=== PATIENT | female | born 1995 | race Caucasian/White ===

== ENCOUNTER 2024-04-11 10:38 | Outpatient (CLI) | payer OTHER ==
[2024-04-11 11:28] VITALS: BP 130/82; PULSE 97; RESP 16; TEMP 97.9
--- NOTE | 2024-04-11 12:06 | P.MSEPDOC ---
Presenting Problems - Arrival Data Date of Arrival on Unit: 04/11/24 Time of Arrival on Unit: 10:38 Mode of Transport: Ambulatory - Complaint OB-Reason for Admission/Chief Complaint: Decreased Movement Comment: Pt presents to triage with c/o DFM. Pt states last felt movement was last night at 1999. Medical History - Information : 1 Para: 0 Term: 0 : 0 Abortions: Spontaneous or Elective: 0 Number of Living Children: 0 - Gestational Age Gestational Age by ANGEL (wks/days): 37 Weeks and 3 Days Review of Systems - Review of Systems Constitutional: No problems Breast: No problems ENT: No problems Cardiovascular: No problems Respiratory: No problems Gastrointestinal: No problems Genitourinary: No problems Musculoskeletal: No problems Neurological: No problems Skin: No problems Vital Signs - Temperature Temperature: 97.9 F Temperature Source: Temporal Artery Scan - Pulse Pulse Oximetery Pulse Rate: 97 Pulse Assessment Method: Pulse Oximetry - Respirations Respiratory Rate: 16 Oxygen Delivery Method: Room Air O2 Sat by Pulse Oximetry: 98 - Blood Pressure Right Arm Blood Pressure: 130/82 Blood Pressure Mean: 98 Blood Pressure Source: Automatic Cuff Medical Screen Scoring - Uterine Contractions Resting: Soft to palpation - Assessment - Baby A Baseline FHR: 135 Heart Rate - NICHD Category: Category I (Normal) NST: Reactive Physician Notification - Physician Notified Physician Notified Date: 04/11/24 Physician Notified Time: 11:11 Physician: Juan Carpio New Order Received: Yes - Notification Comment Comment: Dr. Carpio on unit, reported pt in triage with c/o DFM since last night at 1999. Dr. Carpio reviewed tracing and vitals signs, reported pt is feeling movement at this time and pt has an appointment with Dr. Plata tomorrow. Order received to discharge pt home. Maternal Triage Index - Maternal Triage Index Presenting for scheduled procedure w/no complaint: No - Stat/Priority 1 Stat Priority 1: No - Urgent/Priority 2 Urgent Priority 2: Yes Provider Notified: Juan Carpio Provider Notified Time: 11:11 Criteria Met for Priority 2: c/o decreased movement Disposition - Disposition OB Disposition: Discharge to home, Written follow up instructions reviewed Discharge Date: 04/11/24 Discharge Time: 11:18 I agree with the RN Medical Screening Exam: Yes Physician's MSE Comment: I have neither seen nor examined the patient. Case reviewed; plan agreed upon as documented in EMR&OBIX.: Yes Diagnosis: RELATED CONDITIONS, UNSPECIFIED, THIRD TRIMESTER
== END 2024-04-11 11:18 | disposition home or self-care (01) ==
LOC: FBPOP 10:38
PROVIDERS: ATTEND Obstetrics & Gynecology
DX: O36.8131 Decreased fetal movements, third trimester, fetus 1 (principal); Z3A.37 37 weeks gestation of pregnancy
CPT/HCPCS: 59025; 99213

== ENCOUNTER 2024-04-17 04:23 | Inpatient (IN) | payer OTHER ==
[2024-04-17] MEDS ORDERED: miSOPROStoL 200 MCG TAB PO PRN (05:34)
[2024-04-17] MEDS ORDERED: TERBUTALINE 1 MG/ML VIAL SQ PRN (05:34)
[2024-04-17] MEDS ORDERED: miSOPROStoL 200 MCG TAB RECTAL PRN (05:34)
[2024-04-17] MEDS ORDERED: OXYTOCIN 10 UNIT/ML 1 ML VIAL IM PRN (05:34)
[2024-04-17] MEDS ORDERED: LIDOCAINE 0.5% (PF) 5 MG/ML (50 ML SDV) SQ PRN (05:34)
[2024-04-17] MEDS ORDERED: CARBOPROST TROMETHAMINE 250 MCG/ML 1 ML AMP IM PRN (05:34)
[2024-04-17] MEDS ORDERED: METHYLERGONOVINE 0.2 MG/ML 1 ML AMP IM PRN (05:34)
[2024-04-17] MEDS ORDERED: TRANEXAMIC 1,000 MG/100ML-NACL 1,000 MG in EMPTY BAG 1 BAG IV PRN (05:34)
[2024-04-17] MEDS: LACTATED RINGERS 1,000 ML IV SCH (06:11)
[2024-04-17 06:19] LABS: Basophils % (A) 0 %; Eosinophils # (A) 0.1 k/uL (0-0.7); Eosinophils % (A) 1 %; HCT 38.5 % (34.0-46.0); HGB 12.8 gm/dL (11.4-16.0); Lymphocytes # (A) 1.6 k/uL (1.0-4.8); Lymphocytes % (A) 16 %; MCH 29.5 pg (25.0-35.0); MCHC 33.3 g/dL (31.0-37.0); MCV 88.6 fL (80.0-100.0); Mean Platelet Volume 8.6; Monocytes # (A) 0.7 k/uL (0-1.0); Monocytes % (A) 7 %; Neutrophils # (A) 7.6 k/uL (1.3-7.7); Neutrophils % (A) 75 %; Platelet Count 282 k/uL (150-450); RBC 4.35 m/uL (3.80-5.40); RDW 13.8 % (11.5-15.5); WBC 10.1 k/uL (3.8-10.6)
[2024-04-17 06:23] LABS: Glucose,Whole Blood 110 mg/dL (70-110)
[2024-04-17] MEDS: NALBUPHINE 10 MG/ML (10 ML MDV) IV PRN (07:32)
--- NOTE | 2024-04-17 08:34 | P.HPOB ---
History of Present Illness H&P Date: 04/17/24 Chief Complaint: Contractions Ms. Alexander is a 28 year old at 38 weeks and 2 days with EDC of 04/29/2024 by LMP consistent with 9 week US presenting with spontaneous rupture of membranes around 400 revealing clear amniotic fluid and bennie regularly. Her has been complicated by GDMA2 on Metformin. The fetus is estimated in the 88%ile (7 pounds and 2 ounces) for weight based on a 34 week 5 day growth US. work-up: blood type O positive, antibody screen negative, rubella immune, VDRL non-reactive, HBsAg negative, HIV negative, HCV non-reactive, gonorrhea negative, chlamydia negative, GBS negative. Past Medical History Past Medical History: No Reported History History of Any Multi-Drug Resistant Organisms: None Reported Past Surgical History: Adenoidectomy, Tonsillectomy Additional Past Surgical History / Comment(s): wisdom teeth out Past Anesthesia/Blood Transfusion Reactions: No Reported Reaction Past Psychological History: No Psychological Hx Reported Smoking Status: Never smoker Past Alcohol Use History: None Reported Past Drug Use History: None Reported - Past Family History Mother Additional Family Medical History / Comment(s): from pancreatic cancer Medications and Allergies Home Medications Medication Instructions Recorded Confirmed Type Vit No.179/Iron/Folic 1 each PO DAILY 04/01/24 04/11/24 History [ Tablet] metFORMIN HCL 500 mg PO DAILY 04/01/24 04/11/24 History Aspirin [Adult Low Dose Aspirin EC] 81 mg PO 04/17/24 History Allergies Allergy/AdvReac Type Severity Reaction Status Date / Time No Known Allergies Allergy Verified 04/17/24 04:34 Exam Intake and Output 04/16/24 04/17/24 04/17/24 22:59 06:59 14:59 Other: # Voids 1 Weight 96.615 kg Focused physical exam is performed. This is a healthy-appearing in no a pparent distress. Breathing is non-labored. Abdomen is gravid and non-tender. Cervical exam is 3-4/80/-2. Clear fluid noted. Extremities non-tender and non- edematous. heart tones are Category I and tocometer is graphing contractions every 2-4 minutes. Results Result Diagrams: 04/17/24 05:30 Assessment and Plan Assessment: 28 year old at 38 weeks and 2 days with SROM and in labor Plan: Admit, clear liquid diet, expectant management per patient request, continuous EFM and tocometer, IV nubain prn.
[2024-04-17] MEDS ORDERED: ROPIVACAINE 5 MG/ML 30 ML VIAL ONE (10:10)
[2024-04-17] MEDS ORDERED: SODIUM CHLORIDE 0.9% 250 ML BAG ONE (10:10)
[2024-04-17] MEDS ORDERED: fentaNYL (PF) 50 MCG/ML 5 ML AMP ONE (10:10)
[2024-04-17] MEDS ORDERED: GENTAMICIN PER PHARMACY MISCELLANE PRN (21:13)
[2024-04-17] MEDS: GENTAMICIN 120 MG in SODIUM CHLORIDE 0.9% 100 ML IVPB ONE (21:48)
[2024-04-17] MEDS: OXYTOCIN 30 UNITS/500 ML NS 30 UNIT in SALINE 1 500ML.BAG IV SCH (21:58)
[2024-04-17 22:03] LABS: African American GFR (CKD) >90 (>60 ml/min/1.73 sqM); Anion Gap 10 mmol/L; Blood Urea Nitrogen 12 mg/dL (7-17); Calcium 9.2 mg/dL (8.4-10.2); Carbon Dioxide 17 mmol/L (22-30); Chloride 104 mmol/L (98-107); Glucose 76 mg/dL (74-99); Non-African American GFR(CKD) >90 (>60 ml/min/1.73 sqM); Potassium 4.3 mmol/L (3.5-5.1); Sodium 131 mmol/L (137-145)
[2024-04-17] MEDS: AMPICILLIN 2,000 MG in SODIUM CHLORIDE 0.9% 100 ML IVPB SCH (23:39)
[2024-04-18] MEDS ORDERED: AMPICILLIN 2,000 MG in SODIUM CHLORIDE 0.9% 100 ML IVPB SCH
[2024-04-18] MEDS ORDERED: HYDROCORTISONE 2.5% RECTAL CREAM 30 GM TUBE RECTAL PRN (01:56)
[2024-04-18] MEDS ORDERED: ZOLPIDEM 5 MG TAB PO PRN (01:56)
[2024-04-18] MEDS ORDERED: SIMETHICONE 80 MG CHEWABLE PO PRN (01:56)
[2024-04-18] MEDS ORDERED: diphenhydrAMINE 25 MG CAP PO PRN (01:56)
[2024-04-18] MEDS ORDERED: LANOLIN CREAM 1 GM TUBE TOPICAL PRN (01:56)
[2024-04-18] MEDS ORDERED: BENZOCAINE/MENTHOL SPRAY 1 GM/SPRAY AEROSOL TOPICAL PRN (01:56)
[2024-04-18] MEDS ORDERED: diphenhydrAMINE 50 MG/ML 1 ML VIAL IVP PRN ×2 (01:56)
[2024-04-18] MEDS ORDERED: diphenhydrAMINE 50 MG CAP PO PRN (01:56)
--- NOTE | 2024-04-18 01:56 | P.PROBDLV ---
Vaginal Delivery Note - . Vaginal Delivery Note: DATE OF SERVICE: 04/18/2024 PROCEDURE: Normal Vaginal Delivery ATTENDING: Dr. Afua Avila MD ESTIMATED BLOOD LOSS: 200 mL FINDINGS: VMI, Apgars 8/9. Weight 8 pounds and 4 ounces PROCEDURE: Ms. Alexander is a 28 year old at 38 weeks and 2 days presenting to labor and delivery for SROM at 400 on 04/17. The has been complicated by GDMA2 controlled with Metformin. For further details, please review the admitting H&P. The patient made slow cervical dilation throughout the day and was eventually augmented with pitocin. She received epidural anesthesia per her request. The patient was completely dilated at 1230. The patient pushed effectively with category II heart tones. A viable male was delivered at 136 over an intact perineum. The infant was placed on the maternal abdomen and bulb suctioned. The infant was noted to be spontaneously crying. Cord was clamped and cut after a 60-second delay. The infant was handed off to the pediatric team. Placenta was delivered whole with gentle cord traction at 141. Oxytocin was started to facilitate uterine tone. Uterine fundus was found to be firm and below the umbilicus upon fundal massage. Thorough examination of the cervix, vagina, periurethral area, and perineum revealed no lacerations. The patient is stable and allowed to begin the bonding process.
[2024-04-18] MEDS: IBUPROFEN 800 MG TAB PO SCH (04:04)
[2024-04-18] MEDS: SENNOSIDES-DOCUSATE SODIUM 1 EACH TAB PO SCH (07:56)
[2024-04-18] MEDS: ACETAMINOPHEN TAB 500 MG TAB PO SCH (07:56)
[2024-04-19 06:57] LABS: Basophils % (A) 0 %; Eosinophils # (A) 0.2 k/uL (0-0.7); Eosinophils % (A) 2 %; HCT 35.4 % (34.0-46.0); HGB 11.6 gm/dL (11.4-16.0); Lymphocytes # (A) 2.7 k/uL (1.0-4.8); Lymphocytes % (A) 24 %; MCH 29.7 pg (25.0-35.0); MCHC 32.8 g/dL (31.0-37.0); MCV 90.4 fL (80.0-100.0); Monocytes # (A) 0.7 k/uL (0-1.0); Monocytes % (A) 6 %; Neutrophils # (A) 7.4 k/uL (1.3-7.7); Neutrophils % (A) 67 %; Platelet Count 243 k/uL (150-450); RBC 3.91 m/uL (3.80-5.40); RDW 14.1 % (11.5-15.5); WBC 11.1 k/uL (3.8-10.6)
[2024-04-19 08:42] VITALS: BP 128/70; PULSE 86; RESP 20; TEMP 98.2
--- NOTE | 2024-04-19 10:09 | P.DS ---
Providers Date of admission: 04/17/24 04:47 Expected date of discharge: 04/19/24 Attending physician: Kathy Plata Primary care physician: Stated None Hospital Course: 28 year old now PPD#1 s/p . Labor, delivery, and recovery have been uncomplicated. The patient is experiencing some lower extremity edema which is bothersome, so she will go home with compression stockings. The patient is doing well this morning and had no acute events overnight. She reports minimal lochia, passing flatus, voiding without difficulty, ambulating, and eating/drinking without nausea or vomiting. doing well at bedside, s/p circumcision. She denies chest pain, shortness of breathing, fevers, or chills overnight. She denies pain or swelling in the legs. restrictions are reviewed with the patient including pelvic rest for 6 weeks. The patient is encouraged to call the office if she experiences any heavy bleeding, foul- smelling discharge, breast complaints, or any if she has any other concerns. She will follow up in the office with Dr. Plata in 6 weeks for exam. All questions are answered. Assessment: 28 year old PPD#1 s/p Patient Condition at Discharge: Good Plan - Discharge Summary New Discharge Prescriptions: New Docusate [Colace] 100 mg PO BID PRN #60 capsule PRN Reason: Constipation Ibuprofen [Motrin] 600 mg PO Q6HR PRN #30 tab PRN Reason: Mild Pain (Scale 1 To 3) Acetaminophen Tab [Tylenol] 650 mg PO Q6H PRN #30 tab PRN Reason: Mild Pain (Scale 1 To 3) No Action Vit No.179/Iron/Folic [ Tablet] 1 each PO DAILY metFORMIN HCL 500 mg PO DAILY Aspirin [Adult Low Dose Aspirin EC] 81 mg PO Discharge Medication List Vit No.179/Iron/Folic [ Tablet] 1 each PO DAILY 04/01/24 [History] metFORMIN HCL 500 mg PO DAILY 04/01/24 [History] Aspirin [Adult Low Dose Aspirin EC] 81 mg PO 04/17/24 [History] Acetaminophen Tab [Tylenol] 650 mg PO Q6H PRN #30 tab 04/19/24 [Rx] Docusate [Colace] 100 mg PO BID PRN #60 capsule 04/19/24 [Rx] Ibuprofen [Motrin] 600 mg PO Q6HR PRN #30 tab 04/19/24 [Rx] Follow up Appointment(s)/Referral(s): Kathy Plata DO [Doctor of Osteopathic Medicine] - 6 Weeks Activity/Diet/Wound Care/Special Instructions: Instructions 1. Do not begin any exercise program for 3 weeks. 2. Do not resume sexual relations for 6 weeks or longer if uncomfortable. 3. You may take tub baths or showers at any time. 4. You may use tampons if desired after 6 weeks. 5. Keep any areas repaired with stitches clean and dry. 6. If you are not nursing, wear a good fitting, supportive bra during the day and limit fluid intake for at least 1 week to prevent breast engorgement. 7. Call the office, , within the next week to make appointment for your 6 week checkup if it has not already been made. 8. Report any of the following occurrences to the doctor promptly: a. Heavy, excessive bleeding b. Chills, fever c. Burning or frequency of urination d. Pain or redness and breasts if nursing e. Increasing pain or swelling of vulva (stitches). In addition to the above instructions, the following additional should be followed: 1. No heavy lifting or straining (exercising) until after 6 week checkup. 2. Keep abdominal incision clean and dry: You may wear a dressing if more comfortable. 3. Make office appointment for 2 weeks after delivery date. Discharge Disposition: HOME SELF-CARE
== END 2024-04-19 12:40 | disposition home or self-care (01) | DRG 807 ==
LOC: FBPOP 04:23 → 4FBP 04:47
PROVIDERS: ADMIT Obstetrics & Gynecology; ATTEND Obstetrics & Gynecology
PROC: 10E0XZZ Delivery of Products of Conception, External Approach (ICD-10-PCS; principal; 2024-04-18)
DX: O24.425 Gestational diabetes mellitus in childbirth, controlled by oral hypoglycemic drugs (principal); Z37.0 Single live birth; Z3A.38 38 weeks gestation of pregnancy; Z79.82 Long term (current) use of aspirin; Z79.84 Long term (current) use of oral hypoglycemic drugs; Z80.0 Family history of malignant neoplasm of digestive organs
CPT/HCPCS: 59025; 80048; 85025; 86850; 86900; 86901; 99213